=== PATIENT | male | born 1950 | race Caucasian/White ===

== ENCOUNTER → 2016-12-22 | Outpatient (CLI) | payer BC ==
[~2016-12-22] MED LIST: ASPIRIN 81M81 MG/TA2 PO; ATIVAN 1MG T1 MG/TAB PO; BENAZEPRIL; HCTZ 25MG25 MG PO; HYDROCHLOROTHIAZIDE; PREDNISONE20 MG PO; ZOCOR40 MG PO
== END ==
LOC: COL.RAD 10:30
DX: I71.4 Abdominal aortic aneurysm, without rupture (principal)

== ENCOUNTER → 2021-05-24 | Outpatient (CLI) | payer BC ==
[2021-05-24] VITALS (12 sets, daily range): BP systolic 97–120; BP diastolic 60–74; PULSE 70–81; TEMP 98.7
[~2021-05-24] VITALS: Ht 188 cm; Wt 101.6 kg
[~2021-05-24] MED LIST changes: +MULTIPLE VITAMI1 TA5 PO; +NORCO 325 MG-51 TAB PO; +ZESTRIL 10MG10 MG PO; +ZYLOPRIM 100MG100 MG PO
--- NOTE | 2021-05-24 12:43 | NUR ---
Pt to ct per ambulation. Pt laying supine on ct table. Monitors applied.
--- NOTE | 2021-05-24 13:08 | NUR ---
Specimens obtained and placed in formalin and RPMI by Dr Trent. Specimen labeled.
== END ==
LOC: COL.RAD 12:05
DX: K63.89 Other specified diseases of intestine (principal)
CPT/HCPCS: 32109

== ENCOUNTER 2021-06-25 12:56 | Day surgery (SDC) | payer BC ==
[~2021-06-25] VITALS: Ht 188 cm; Wt 99.0 kg
--- NOTE | 2021-06-25 12:06 | NUR ---
PATIENT AMBULATED INTO SDC UNIT WITH STEADY GAIT ACCOMPAINED BY SON. PATIENT IS ALERT AND ORIENTED X 4. SON NEEDED TO LEAVE GIVE US HIS CELL PHONE NUMBER. CONSENT EXPLAINED AND PATIENT SIGNED. ASSESSMENT COMPLETED. LUNGS CTA. HEART SOUNDS S1S2 AND REGULAR WITH MURMUR. BOWEL SOUNDS HEARD. PEDAL PULSES FELT.
[~2021-06-25 12:56] MED LIST changes: -NORCO 325 MG-51 TAB PO; -ZYLOPRIM 100MG100 MG PO
[2021-06-25 13:00] VITALS: BP 98/59; PULSE 93; TEMP 97.7
[2021-06-25] MEDS ORDERED: NORCO 325 MG-51 TAB PO (15:53)
--- NOTE | 2021-06-25 16:34 | NUR ---
Patient arrived on cart from PACU, escorted by Bobbi ROJAS. Report obtained. Patient is currently on 2L o2 via nasal cannula. Patient is oriented, however very drowsy. Vitals obtained at this time. Patient requested ice water and is tolerating it well. Will continue to monitor.
[2021-06-25 16:35] VITALS: BP 92/59; PULSE 78; TEMP 98.6
[2021-06-25 16:50] VITALS: BP 106/58; PULSE 84
--- NOTE | 2021-06-25 16:50 | NUR ---
Patient is tolerating his ice water well. Another warm blanket provided. Patient requested lights to be turned off. His son was contacted at this time. Vitals obtained. Side rails x2. Call hayes is within reach. Will continue to monitor.
[2021-06-25 17:05] VITALS: BP 102/59; PULSE 70
--- NOTE | 2021-06-25 17:05 | NUR ---
Patient requested toast with strawberry jam. Lights were turned back on at this time. Vitals obtained. Side rails x2, will continue to monitor. Call hayes at bedside. O2 titrated down to 1L.
[2021-06-25 17:20] VITALS: BP 103/62; PULSE 87
--- NOTE | 2021-06-25 17:24 | NUR ---
Patient is tolerating his toast. Denies N/V. Vitals obtained. Will continue to monitor. O2 has been discontinued.
[2021-06-25 17:33] VITALS: BP 92/59; PULSE 86
--- NOTE | 2021-06-25 17:45 | NUR ---
Patient was able to ambulate to bathroom to void. Patient was mildly unsteady, denies dizziness or lightheadedness. IV discontinued at this time due to discharge. Catheter tip intact; no swelling or reddness noted. Pressure bandage applied. Discharge instructions reviewed with patient, who verbalized understanding and signed related paperwork. Patient refused assistance changing. Son was called for another update and told to meet us at the ED entrence. Patient has his personal belongings and discharge instructions.
--- NOTE | 2021-06-25 18:04 | NUR ---
Patient was escorted out via wheelchair to ED entrence by BOB Johnson. Patient has his personal belongings and discharge materials. States no further questions or concerns. His son Beni is at the ED entrence to drive the patient home, patient was transferred into his care.
[2021-07-11] MEDS ORDERED: ZYLOPRIM 100MG100 MG PO (09:30)
[2021-07-11] MEDS ORDERED: PREDNISONE20 MG PO (09:31)
== END 2021-06-25 18:07 | disposition home or self-care (01) ==
LOC: SDCO 12:56
DX: C83.33 Diffuse large B-cell lymphoma, intra-abdominal lymph nodes (principal); R18.8 Other ascites; I10 Essential (primary) hypertension; Z79.899 Other long term (current) drug therapy
CPT/HCPCS: J0330; J0690; J1100; J2370; J2405; J2704; J3010; J7120

== ENCOUNTER → 2022-06-25 | Outpatient (CLI) | payer MEDICARE, BC ==
[~2022-06-25] MED LIST changes: +NORCO 325 MG-51 TAB PO; +ZYLOPRIM 100MG100 MG PO
== END ==
LOC: COL.RAD 07:30
DX: Z08 Encounter for follow-up examination after completed treatment for malignant neoplasm (principal); C78.6 Secondary malignant neoplasm of retroperitoneum and peritoneum; C79.89 Secondary malignant neoplasm of other specified sites; R59.0 Localized enlarged lymph nodes; Z85.72 Personal history of non-Hodgkin lymphomas
CPT/HCPCS: Q9967